=== PATIENT | male | born 1950 | race Caucasian/White ===

== ENCOUNTER 2023-06-14 05:33 | Day surgery (SDC) | payer MEDICARE, OTHER ==
[2023-06-08 13:40] VITALS: BMI 27.0
[2023-06-14] MEDS ORDERED: CEFAZOLIN 2 GM VIAL ONE (06:09)
[2023-06-14] MEDS ORDERED: Sodium Chloride 0.9% 100 ML ONE (06:09)
[2023-06-14] MEDS ORDERED: Thrombin 5000 UNITS/5 ML VIAL ONE (06:10)
[2023-06-14] MEDS ORDERED: Bupivacaine PF 0.5% 30 ML VIAL ONE (06:10)
[2023-06-14] MEDS ORDERED: EPINEPHrine 1 MG/ML VIAL ONE (06:10)
[2023-06-14] MEDS ORDERED: Vancomycin 1 GM VIAL ONE (06:10)
[2023-06-14] MEDS ORDERED: fentaNYL PF 100 MCG/2 ML SYRINGE ONE ×2 (06:41→09:16)
[2023-06-14] MEDS ORDERED: PROPOFOL 20 ML ONE (06:41)
[2023-06-14] MEDS ORDERED: Lidocaine 2% PF 5 ML VIAL ONE (06:42)
[2023-06-14] MEDS ORDERED: Rocuronium Bromide 10 MG/ML (10ML VIAL) ONE ×2 (06:43→07:00)
[2023-06-14] MEDS ORDERED: Dexamethasone 4 mg/ml Vial ONE (06:52)
[2023-06-14] MEDS ORDERED: Ondansetron PF 4 MG/2 ML Vial ONE ×2 (06:52→07:00)
[2023-06-14] MEDS ORDERED: MINERAL OIL/WHITE PETROLATUM 3.5 GM TUBE ONE (06:53)
[2023-06-14 06:56] LABS: #Basophils 0.1 thou/uL (0.0-0.2); #Eosinphils 0.3 thou/uL (0.0-0.7); #Monocytes 0.8 thou/uL (0.11-0.59); #Neutrophils 7.2 thou/uL (1.40-6.50); %Basophils 0.7 % (0.0-1.0); %Eosinophils 2.7 % (0.0-10.0); %Lymphocytes 17.1 % (21.0-51.0); %Monocytes 8.1 % (0.0-10.0); %Neutrophils 71.1 % (42.0-75.0); Hematocrit 43.5 % (42.0-52.0); Hemoglobin 14.4 g/dL (14.0-18.0); Mean Corpuscular HGB CONC 33.1 g/dL (32.0-36.0); Mean Corpuscular Hemoglobin 31.7 pg (27.0-31.0); Mean Corpuscular Volume 95.8 fl (78.0-98.0); Mean Platelet Volume 11.4 fL (7.4-10.4); Platelet Count 207 10x3/uL (130-400); RBC Distribution Width 14.2 % (11.5-14.5); Red Blood Cell (RBC) Count 4.54 mill/uL (4.70-6.10); White Blood Cell (WBC) Count 10.1 10x3/uL (4.8-10.8)
[2023-06-14] MEDS ORDERED: Lidocaine 1% PF 5 ML VIAL ONE (07:00)
[2023-06-14] MEDS ORDERED: Vecuronium 10 MG VIAL ONE ×2 (07:00→08:53)
[2023-06-14] MEDS ORDERED: PROPOFOL 200 MG/20 ML VIAL ONE (07:00)
[2023-06-14] MEDS ORDERED: Dexamethasone 20 MG/5 ML VIAL ONE (07:00)
[2023-06-14 07:07] LABS: PTT 28.7 sec (22.9-36.1); Prothrombin Time 13.4 sec (12.0-14.7)
[2023-06-14 07:17] LABS: Anion Gap 13 mmol/L (10-20); BUN (Urea Nitrogen) 20 mg/dL (8.4-25.7); Calc. Creatinine Clearance 78 mL/min (70-130); Calcium 9.4 mg/dL (7.8-10.44); Carbon Dioxide 24 mmol/L (23-31); Chloride 104 mmol/L (98-107); Estimated GFR 77; Glucose 104 mg/dL (80-115); Sodium 137 mmol/L (136-145)
[2023-06-14] MEDS ORDERED: HYDROmorphone 2 MG/ML VIAL ONE (07:32)
[2023-06-14] MEDS ORDERED: SUGAMMADEX SODIUM 200 MG/2 ML VIAL ONE (09:10)
[2023-06-14] MEDS ORDERED: fentaNYL 50 mcg/mL 1 mL Vial ONE (09:37)
[2023-06-14] MEDS ORDERED: HYDROmorphone 0.5 MG/0.5 ML SYRINGE ONE ×2 (09:50→10:11)
[2023-06-14] MEDS ORDERED: HYDROcodone/Acetaminophen 5/325 mg Tablet ONE (11:37)
== END 2023-06-14 12:40 | disposition home or self-care (01) ==
LOC: SDC 05:33
PROVIDERS: ATTEND Neurological Surgery
PROC: 01NB0ZZ Release Lumbar Nerve, Open Approach (ICD-10-PCS; principal; 2023-06-14)
DX: M48.061 Spinal stenosis, lumbar region without neurogenic claudication (principal); M51.16 Intervertebral disc disorders with radiculopathy, lumbar region; E78.00 Pure hypercholesterolemia, unspecified; G89.29 Other chronic pain; G60.8 Other hereditary and idiopathic neuropathies; I10 Essential (primary) hypertension; I65.22 Occlusion and stenosis of left carotid artery; Z68.28 Body mass index [BMI] 28.0-28.9, adult; Z79.899 Other long term (current) drug therapy; Z79.82 Long term (current) use of aspirin
CPT/HCPCS: 63047; 80048; 85025; 85610; 85730; J0171; J3010; J1100; J1170; J2001; J2405; J2704; J3370; J3490; S0020